=== PATIENT | male | born 1965 | race Caucasian/White ===

== ENCOUNTER 2017-05-03 13:55 | Emergency (ER) | payer OTHER ==
[2017-05-03 14:21] LABS: #Basophils 0.1 thou/uL (0.0-0.2); #Eosinphils 0.1 thou/uL (0.0-0.7); #Lymphocytes 1.8 thou/uL (1.20-3.40); #Monocytes 0.5 thou/uL (0.11-0.59); %Basophils 1.2 % (0.0-1.0); %Eosinophils 1.4 % (0.0-10.0); %Lymphocytes 32.6 % (21.0-51.0); %Monocytes 8.9 % (0.0-10.0); %Neutrophils 55.8 % (42.0-75.0); Hemoglobin 16.7 g/dL (14.0-18.0); Mean Corpuscular HGB CONC 35.4 g/dL (32.0-36.0); Mean Corpuscular Hemoglobin 32.3 pg (27.0-31.0); Mean Corpuscular Volume 91.1 fl (80.0-94.0); Mean Platelet Volume 7.2 fL (7.4-10.4); Platelet Count 277 thou/uL (130-400); RBC Distribution Width 11.4 % (11.5-14.5); Red Blood Cell (RBC) Count 5.19 mill/uL (4.70-6.10); White Blood Cell (WBC) Count 5.4 thou/uL (4.8-10.8)
[2017-05-03 14:29] LABS: ALT (SGPT) 34 U/L (8-55); AST (SGOT) 21 U/L (5-34); Albumin 4.5 g/dL (3.5-5.0); Alkaline Phosphatase 82 U/L (40-150); Anion Gap 12 mmol/L (10-20); BUN (Urea Nitrogen) 16 mg/dL (8.9-20.6); Bilirubin, Total 0.7 mg/dL (0.2-1.2); CK (CPK) 116 U/L (30-200); Calc. Creatinine Clearance 0 mL/min (70-130); Calcium 9.7 mg/dL (7.8-10.44); Carbon Dioxide 26 mmol/L (22-29); Chloride 106 mmol/L (98-107); Estimated GFR-MDRD 80; Globulin 2.9 g/dL (2.4-3.5); Glucose 99 mg/dL (70-105); Potassium 3.9 mmol/L (3.5-5.1); Protein, Total 7.4 g/dL (6.0-8.3); Sodium 140 mmol/L (136-145)
[2017-05-03 14:33] LABS: Troponin I Less than 0.010 ng/mL (< 0.028)
--- NOTE | 2017-05-03 15:28 | RAD ---
PORTABLE CHEST 1 VIEW: Date: 05/03/17 Time: 1411 hours HISTORY: Chest pain. FINDINGS: The heart size is normal. The lungs are expanded without focal areas of consolidation, pneumothorax, or pleural effusions. IMPRESSION: No radiographic evidence of acute cardiopulmonary process. POS: [facility]
--- NOTE | 2017-05-03 15:53 | CT ---
CT BRAIN WITHOUT CONTRAST CT CERVICAL SPINE WITH CORONAL AND SAGITTAL REFORMATIONS: Date: 05/03/17 HISTORY: Headache. Neck pain. Trauma. FINDINGS: No evidence of acute infarct, hemorrhage, midline shift, or abnormal extra-axial fluid collections ar e seen. The ventricular size is normal and the basilar cisterns are patent. The bony calvarium is int act. The visualized paranasal sinuses and mastoid air cells are well aerated. There are degenerative changes in the spine, most prominent at C5-6-7 levels. No acute fracture or naylor bluxation is identified. IMPRESSION: No CT evidence of acute intracranial process or cervical spine fracture. POS: [facility]
== END 2017-05-03 16:02 | disposition home or self-care (01) ==
LOC: ERS 13:55
DX: S09.90XA Unspecified injury of head, initial encounter (principal); R07.9 Chest pain, unspecified; K21.9 Gastro-esophageal reflux disease without esophagitis; W55.12XA Struck by horse, initial encounter
CPT/HCPCS: 70450; 71045; 72125; 80053; 82550; 82553; 84484; 85025; 93005